=== PATIENT | male | born 1965 | race Caucasian/White ===

== ENCOUNTER → 2016-11-21 | Outpatient (CLI) | payer BC ==
[~2016-11-21] MED LIST: CARDURA 1MG TAB1 MG NG; LOPRESSOR 25MG.25 M1 OR; METFORMIN ER500 MG PO; OMEPRAZOLE20 MG PO
--- NOTE | 2016-11-21 13:00 | RADIOLOGY REPORT PS360 ---
US ABD(COMPLETE-MULTI ORGANS HISTORY: Follow-up REYES, CIRRHOSIS ORDERING PHYSICIAN: JAKE WILLIAM APRN PATIENT AGE: 51 years COMPARISON: 06/11/2016 FINDINGS: PANCREAS:Unremarkable. No obvious mass or abnormal fluid collection. No ductal dilatation LIVER:There is diffuse hepatic steatosis. No focal liver lesion or biliary dilatation. Hepatopedal flow within the portal vein. Normal sized portal vein at 9 mm RIGHT KIDNEY:Unremarkable. Normal size and echogenicity. No hydronephrosis LEFT KIDNEY:Unremarkable. No hydronephrosis. Normal size and echogenicity. GALLBLADDER:Bulging present within the gallbladder. No stones, wall thickening, or pericholecystic fluid AORTA:No evidence of aneurysmal dilatation. SPLEEN:Splenomegaly at 14 cm ASCITES:None demonstrated. IMPRESSION: 1. Overall no change hepatic steatosis 2. Appropriate blood flow within the portal vein measures 9 mm previously measuring up to 14 mm 3. Mild splenomegaly
== END ==
LOC: RAD 07:46
DX: K74.60 Unspecified cirrhosis of liver (principal)

== ENCOUNTER → 2017-06-25 | Outpatient (CLI) | payer BC ==
--- NOTE | 2017-06-26 07:51 | RADIOLOGY REPORT PS360 ---
CHEST(2 VIEWS-NOT PORTABLE) HISTORY: Left chest pain and contusion CONTUSION OF LEFT CHEST ORDERING PHYSICIAN: Ervin Hawkins MD PATIENT AGE: 51 years COMPARISON: None available FINDINGS: The cardiomediastinal silhouette and pulmonary vascularity are within normal limits. The lungs are clear without infiltrates, suspicious nodules, or pleural effusions. There are minimal atelectatic changes in the left lung base. No evidence of pneumothorax. DJD changes thoracic spine. No acute bony abnormalities. IMPRESSION: Mild left basilar atelectasis otherwise negative chest
== END ==
LOC: RAD 18:17
DX: S20.212A Contusion of left front wall of thorax, initial encounter (principal)